=== PATIENT | male | born 2000 | race African-American/Black ===

== ENCOUNTER 2019-08-20 01:57 | Emergency (ER) | payer OTHER, SELFPAY ==
[2019-08-20] MEDS ORDERED: Dexamethasone 10 MG/ML VIAL ONE (03:09)
[2019-08-20 03:16] LABS: #Basophils 0.1 thou/uL (0.0-0.2); #Eosinphils 0.1 thou/uL (0.0-0.7); #Lymphocytes 3.5 thou/uL (1.20-3.40); #Monocytes 1.1 thou/uL (0.11-0.59); #Neutrophils 7.9 thou/uL (1.40-6.50); %Basophils 0.4 % (0.0-1.0); %Eosinophils 0.6 % (0.0-10.0); %Lymphocytes 27.9 % (28.0-48.0); %Monocytes 8.6 % (0.0-4.0); %Neutrophils 62.5 % (31.0-61.0); Hemoglobin 10.7 g/dL (14.0-18.0); Mean Corpuscular HGB CONC 32.5 g/dL (32.0-36.0); Mean Corpuscular Hemoglobin 31.1 pg (25.0-35.0); Mean Corpuscular Volume 95.7 fL (78.0-98.0); Mean Platelet Volume 7.7 fL (7.4-10.4); Platelet Count 246 thou/uL (130-400); RBC Distribution Width 15.1 % (11.5-14.5); Red Blood Cell (RBC) Count 3.44 mill/uL (4.00-5.20); White Blood Cell (WBC) Count 12.7 thou/uL (4.8-10.8)
[2019-08-20 03:39] LABS: Anion Gap 11 mmol/L (10-20); BUN (Urea Nitrogen) 8 mg/dL (8.9-20.6); Calc. Creatinine Clearance 0 mL/min (70-130); Carbon Dioxide 28 mmol/L (22-29); Chloride 111 mmol/L (98-107); Estimated GFR-MDRD Greater than 90; Potassium 3.2 mmol/L (3.5-5.1); Sodium 147 mmol/L (136-145)
[2019-08-20 03:40] LABS: ALT (SGPT) 29 U/L (8-55); AST (SGOT) 21 U/L (5-34); Alkaline Phosphatase 42 U/L (50-130); Bilirubin, Total 0.4 mg/dL (0.2-1.2); Calcium 9.2 mg/dL (7.8-10.44); Globulin 2.9 g/dL (2.4-3.5); Glucose 66 mg/dL (70-105); Protein, Total 6.9 g/dL (6.0-8.3)
[2019-08-20] MEDS ORDERED: Lidocaine 1% w/Epinephrine 1:100K 20 ML VIAL ONE (04:50)
--- NOTE | 2019-08-20 07:32 | CT ---
PRELIMINARY REPORT/[facility]/EMERGENCY AFTER HOURS PROCEDURE: Receipt of this report by the clinical staff was confirmed with Olivia Jeffery MD by Giulia Palafox on Aug 20, 2019 02:59:00 CDT. Addendum electronically signed by iGulia Palafox on August 20, 2019 2:59:[address] brain without contrast: Comparison: 01/16/2014 Findings: Large amount of edema surrounding what may be a complex cystic and solid mass arising out of the pitu itary fossa with heterogeneous calcification within and just above the component at the level of the pituitary fossa. The masslike area above the pituitary fossa measures approximately 4.5 x 2.9 cm on i mage #10. The sella turcica is expanded by the partially calcified mass which could measure up to 2.6 x 1.8 cm within the sella turcica. Small amount of hyperdensity along the posterior lateral margin o f the suprasellar mass on around image #44. No other evidence of intracranial hemorrhage. There is a least mild midline shift at the level of the septum pellucidum by 3-4 mm. No hydrocephalus. Mildly displaced bilateral nasal bone fractures. Maximal displacement is 3 mm on the left and there i s angulation of the fracture fragments to the right. No other acute fracture or dislocation. 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 Th e bones, sinuses and soft tissues are otherwise unremarkable. Impression: Acute bilateral nasal bone fractures. Large amount of edema surrounding complex mass that may be originating in the pituitary fossa and ext ending superiorly and to the left with large amount of surrounding edema in the left frontal lobe. Th is may be a primary pituitary malignancy or other primary brain neoplasm. Small amount of hyperdensit y around the periphery of what may be a cystic component in the superior lateral aspect of this massl nikko area may be hyper cellularity or a small amount of acute intratumoral hemorrhage. Further evaluat ion with pre-and postcontrast MRI and neurosurgical consultation could be considered to further evalu ate. ELECTRONICALLY SIGNED BY: Junior Gomez MD Aug 20, 2019 2:53:30 AM CDT This report is intended for review by the ordering physician only, in accordance of law. If you recei ve this report in error, please call [facility] at [phone]. FINAL REPORT CT BRAIN WITHOUT CONTRAST: I agree with the preliminary report given by [facility]. POS: AMANDEEP
--- NOTE | 2019-08-20 07:48 | CT ---
PRELIMINARY REPORT/[facility]/EMERGENCY AFTER HOURS PROCEDURE: Receipt of this report by the clinical staff was confirmed with Olivia Jeffery MD by Giulia Palafox on Aug 20, 2019 02:59:00 CDT. Addendum electronically signed by Giulia Palafox on August 20, 2019 2:59:[address] brain and CT facial bones without contrast: Comparison: 01/16/2014 Findings: Large amount of edema surrounding what may be a complex cystic and solid mass arising out of the pitu itary fossa with heterogeneous calcification within and just above the component at the level of the pituitary fossa. The masslike area above the pituitary fossa measures approximately 4.5 x 2.9 cm on i mage #10. The sella turcica is expanded by the partially calcified mass which could measure up to 2.6 x 1.8 cm within the sella turcica. Small amount of hyperdensity along the posterior lateral margin o f the suprasellar mass on around image #44. No other evidence of intracranial hemorrhage. There is a least mild midline shift at the level of the septum pellucidum by 3-4 mm. No hydrocephalus. Mildly displaced bilateral nasal bone fractures. Maximal displacement is 3 mm on the left and there i s angulation of the fracture fragments to the right. No other acute fracture or dislocation. 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 Th e bones, sinuses and soft tissues are otherwise unremarkable. Impression: Acute bilateral nasal bone fractures. Large amount of edema surrounding complex mass that may be originating in the pituitary fossa and ext ending superiorly and to the left with large amount of surrounding edema in the left frontal lobe. Th is may be a primary pituitary malignancy or other primary brain neoplasm. Small amount of hyperdensit y around the periphery of what may be a cystic component in the superior lateral aspect of this massl nikko area may be hyper cellularity or a small amount of acute intratumoral hemorrhage. Further evaluat ion with pre-and postcontrast MRI and neurosurgical consultation could be considered to further evalu ate. ELECTRONICALLY SIGNED BY: Junior Gomez MD Aug 20, 2019 2:53:30 AM CDT This report is intended for review by the ordering physician only, in accordance of law. If you recei ve this report in error, please call [facility] at [phone]. FINAL REPORT CT FACIAL BONES WITHOUT CONTRAST: I agree with the preliminary report given by Dr. Junior Gomez of [facility]. POS: AMANDEEP
--- NOTE | 2019-08-20 07:51 | RAD ---
PORTABLE CHEST 1 VIEW: DATE: 08/20/2019. TIME: 2:17 AM. HISTORY: Syncope, fall. FINDINGS: The heart size is normal. The lungs are expanded without lobar consolidation, pneumothoraces, or ple ural effusions. IMPRESSION: No radiographic evidence of acute cardiopulmonary process. POS: AMANDEEP
--- NOTE | 2019-08-21 15:03 | EKG ---
Test Reason : Blood Pressure : / mmHG Vent. Rate : 067 BPM Atrial Rate : 067 BPM P-R Int : 138 ms QRS Dur : 084 ms QT Int : 428 ms P-R-T Axes : 039 017 055 degrees QTc Int : 452 ms Normal sinus rhythm with sinus arrhythmia Abnormal ECG Confirmed by PATRICIA EASON DO ([id number]), loan expeditor SILVERIO KUMAR ([id number]) on 08/21/2019 3:02:58 PM Referred By: Confirmed By:PATRICIA EASON DO
== END 2019-08-20 03:50 | disposition left against medical advice (07) ==
LOC: ERS 01:57
DX: S02.2XXA Fracture of nasal bones, initial encounter for closed fracture (principal); S01.112A Laceration without foreign body of left eyelid and periocular area, initial encounter; R22.0 Localized swelling, mass and lump, head; R55 Syncope and collapse; F32.9 Major depressive disorder, single episode, unspecified; Z79.899 Other long term (current) drug therapy; W01.0XXA Fall on same level from slipping, tripping and stumbling without subsequent striking against object, initial encounter; Y92.009 Unspecified place in unspecified non-institutional (private) residence as the place of occurrence of the external cause
CPT/HCPCS: 36415; 70450; 70486; 71045; 80053; 85025; 93005; J1100

== ENCOUNTER 2019-08-20 04:46 | Emergency (ER) | payer SELFPAY ==
[2019-08-20 05:16] LABS: #Basophils 0.1 thou/uL (0.0-0.2); #Eosinphils 0.1 thou/uL (0.0-0.7); #Lymphocytes 3.1 thou/uL (1.20-3.40); #Monocytes 0.9 thou/uL (0.11-0.59); #Neutrophils 9.6 thou/uL (1.40-6.50); %Basophils 0.5 % (0.0-1.0); %Eosinophils 0.7 % (0.0-10.0); %Lymphocytes 22.3 % (28.0-48.0); %Monocytes 6.3 % (0.0-4.0); %Neutrophils 70.2 % (31.0-61.0); Hemoglobin 11.4 g/dL (14.0-18.0); Mean Corpuscular HGB CONC 32.8 g/dL (32.0-36.0); Mean Corpuscular Hemoglobin 31.7 pg (25.0-35.0); Mean Corpuscular Volume 96.5 fL (78.0-98.0); Mean Platelet Volume 8.1 fL (7.4-10.4); Platelet Count 244 thou/uL (130-400); RBC Distribution Width 15.2 % (11.5-14.5); Red Blood Cell (RBC) Count 3.61 mill/uL (4.00-5.20); White Blood Cell (WBC) Count 13.7 thou/uL (4.8-10.8)
[2019-08-20 05:37] LABS: ALT (SGPT) 30 U/L (8-55); AST (SGOT) 21 U/L (5-34); Albumin 4.2 g/dL (3.5-5.0); Alkaline Phosphatase 43 U/L (50-130); Anion Gap 10 mmol/L (10-20); BUN (Urea Nitrogen) 10 mg/dL (8.9-20.6); Bilirubin, Total 0.5 mg/dL (0.2-1.2); Calc. Creatinine Clearance 0 mL/min (70-130); Calcium 9.5 mg/dL (7.8-10.44); Carbon Dioxide 30 mmol/L (22-29); Chloride 111 mmol/L (98-107); Estimated GFR-MDRD Greater than 90; Globulin 3.2 g/dL (2.4-3.5); Glucose 106 mg/dL (70-105); Potassium 3.4 mmol/L (3.5-5.1); Protein, Total 7.4 g/dL (6.0-8.3); Sodium 148 mmol/L (136-145)
== END 2019-08-20 08:35 | disposition short-term general hospital (02) ==
LOC: ERS 04:46
DX: G93.6 Cerebral edema (principal); F32.9 Major depressive disorder, single episode, unspecified; Z79.899 Other long term (current) drug therapy
CPT/HCPCS: 99284

== ENCOUNTER 2020-09-06 21:31 | Emergency (ER) | payer BC ==
[2020-09-07 06:33] LABS: SARS-CoV-2 PCR by NAA Not Detected (NotDetected)
== END 2020-09-06 22:50 | disposition home or self-care (01) ==
LOC: ERS 21:31
DX: J06.9 Acute upper respiratory infection, unspecified (principal); Z20.822 Contact with and (suspected) exposure to COVID-19; Z76.0 Encounter for issue of repeat prescription; F17.210 Nicotine dependence, cigarettes, uncomplicated
CPT/HCPCS: 87635; 99283; U0003; U0005

== ENCOUNTER 2022-06-23 16:37 | Emergency (ER) | payer OTHER ==
[~2022-06-23 16:37] MED LIST: Iopamidol-370 76% 500 ML 1 ML ONE
[2022-06-23] MEDS ORDERED: Dexamethasone 10 MG/ML VIAL ONE (19:12)
[2022-06-23] MEDS ORDERED: cefTRIAXone\\ROCEPHIN 1 GM VIAL ONE (19:12)
== END 2022-06-23 19:31 | disposition home or self-care (01) ==
LOC: ERS 16:37
DX: K11.20 Sialoadenitis, unspecified (principal)
CPT/HCPCS: 70491; 96374; 96375; J0696; J1100; Q9967